=== PATIENT | female | born 1965 | race Hispanic/Latino ===

== ENCOUNTER 2017-08-28 09:51 | Day surgery (SDC) | payer MEDICAID ==
[~2017-08-28] VITALS: Ht 157.5 cm; Wt 77.6 kg
[~2017-08-28 09:51] MED LIST: ATOR40TA69 PO; BUSP10TA3 PO; GABA-531 PO; INSU100V SQ; INSU100V12 SQ; LAMO200T51 PO; LOSA25TA21 PO; METF500T6 PO; METH500T6 PO; MONT10TA24 PO; PANT40TA25 PO; RISP4TAB16 PO; SODIUM CHLORIDE 0.9% 1000ML 1,000 ML IV ONE; TRAZ-185 PO
[2017-08-28 10:12] VITALS: BP 143/76
[2017-08-28] MEDS ORDERED: MIDAZOLAM HCL 1 MG/ML 2ML VIAL ONE (11:07)
[2017-08-28 12:05] VITALS: BP 150/87
== END 2017-08-28 12:20 | disposition home or self-care (01) ==
LOC: DAH 09:51
PROVIDERS: ATTEND Internal Medicine
DX: D12.2 Benign neoplasm of ascending colon (principal); K62.1 Rectal polyp; Z68.31 Body mass index [BMI] 31.0-31.9, adult; I10 Essential (primary) hypertension; E78.00 Pure hypercholesterolemia, unspecified; F41.9 Anxiety disorder, unspecified; F32.9 Major depressive disorder, single episode, unspecified; J45.909 Unspecified asthma, uncomplicated; E11.9 Type 2 diabetes mellitus without complications; R56.9 Unspecified convulsions; Z79.899 Other long term (current) drug therapy; Z79.84 Long term (current) use of oral hypoglycemic drugs; Z79.4 Long term (current) use of insulin; Z90.710 Acquired absence of both cervix and uterus; Z98.890 Other specified postprocedural states; K22.8 Other specified diseases of esophagus; K57.30 Diverticulosis of large intestine without perforation or abscess without bleeding
CPT/HCPCS: 43239; 45380; 45385; 82948 ×2; 88305; 88313; 88342; A4606; J2250; J7030

== ENCOUNTER → 2018-07-10 | Outpatient (CLI) | payer MEDICAID ==
[~2018-07-10] MED LIST changes: -LOSA25TA21 PO; +LOSA25TA41 PO; +METF-444 PO; -METF500T6 PO; -SODIUM CHLORIDE 0.9% 1000ML 1,000 ML IV ONE
== END | disposition home or self-care (01) ==
LOC: RAH 08:36
PROVIDERS: ATTEND Family Medicine
DX: M79.661 Pain in right lower leg (principal); R60.0 Localized edema
CPT/HCPCS: 93971

== ENCOUNTER → 2018-11-19 | Outpatient (CLI) | payer MEDICAID | END | disposition home or self-care (01) | LOC: RAH 10:50 | PROVIDERS: ATTEND Family Medicine | DX: K31.84 Gastroparesis (principal) | CPT/HCPCS: 78264; A9541 ==

== ENCOUNTER → 2020-04-25 | Outpatient (CLI) | payer MEDICAID ==
[~2020-04-25] MED LIST changes: -MONT10TA24 PO; +MONT10TA26 PO; -PANT40TA25 PO; +PANT40TA54 PO; -RISP4TAB16 PO; +RISP4TAB73 PO
== END | disposition home or self-care (01) ==
LOC: RAH 13:26
PROVIDERS: ATTEND Internal Medicine Cardiovascular Disease
DX: I82.402 Acute embolism and thrombosis of unspecified deep veins of left lower extremity (principal); R60.9 Edema, unspecified
CPT/HCPCS: 93970

== ENCOUNTER → 2020-09-27 | Outpatient (CLI) | payer MEDICAID ==
[~2020-09-27] MED LIST changes: +METH-811 PO; -METH500T6 PO; -MONT10TA26 PO; +MONT10TA32 PO
== END | disposition home or self-care (01) ==
LOC: RAH 14:20
PROVIDERS: ATTEND Internal Medicine Cardiovascular Disease
DX: R60.9 Edema, unspecified (principal)
CPT/HCPCS: 93970

== ENCOUNTER → 2020-12-09 | Outpatient (CLI) | payer MEDICAID ==
[~2020-12-09] MED LIST changes: +0.9%NACL 1000ML 0 ML IV ONE; +ASPI-1197 PO; +CHOL5POW MC; +CLOP75TA32 PO; +CYCL5TAB PO; +DIVA-78 PO; +DIVA250T45 PO; +ESCI5TAB16 PO; +FOLI1TAB85 PO; +FURO20TA4 PO; +HYDR-3422 PO; +INSU100I21 SQ; +LURA60TA PO; +METO-408 PO; +MIRT-72 PO
== END | disposition home or self-care (01) ==
LOC: DAH 10:00 → EDSTATUS 12-13 09:45
PROVIDERS: ATTEND Internal Medicine Gastroenterology
DX: R19.7 Diarrhea, unspecified (principal); Z20.822 Contact with and (suspected) exposure to COVID-19
CPT/HCPCS: 87635; C9803; J7030

== ENCOUNTER → 2020-12-27 | Day surgery (SDC) | payer MEDICAID ==
[2020-12-27] VITALS (7 sets, daily range): BP systolic 165–199; BP diastolic 64–96
[~2020-12-27] MED LIST changes: -0.9%NACL 1000ML 0 ML IV ONE; +0.9%NACL 1000ML 1,000 ML IV ONE; +PROPOFOL 10 MG/ML 20ML VIAL IV ONE
== END | disposition home or self-care (01) ==
LOC: ENDO 12-21 16:49 → DAH 08:18 → ENDO 12:50
PROVIDERS: ATTEND Internal Medicine Gastroenterology
DX: K52.9 Noninfective gastroenteritis and colitis, unspecified (principal); Z20.822 Contact with and (suspected) exposure to COVID-19; K21.9 Gastro-esophageal reflux disease without esophagitis; I10 Essential (primary) hypertension; E11.43 Type 2 diabetes mellitus with diabetic autonomic (poly)neuropathy; K31.84 Gastroparesis; F41.9 Anxiety disorder, unspecified; F32.9 Major depressive disorder, single episode, unspecified; J45.909 Unspecified asthma, uncomplicated; E78.00 Pure hypercholesterolemia, unspecified; K76.0 Fatty (change of) liver, not elsewhere classified; I25.10 Atherosclerotic heart disease of native coronary artery without angina pectoris; I25.2 Old myocardial infarction; Z86.010 Personal history of colon polyps; Z90.710 Acquired absence of both cervix and uterus; Z98.890 Other specified postprocedural states; Z98.891 History of uterine scar from previous surgery; Z95.5 Presence of coronary angioplasty implant and graft; Z79.82 Long term (current) use of aspirin; Z79.01 Long term (current) use of anticoagulants; Z79.899 Other long term (current) drug therapy
CPT/HCPCS: 45380; 82948 ×2; A4215; A4221; A4222; A4223; A4606; A4620; A4663; J3490; J7030; J2704

== ENCOUNTER → 2021-01-23 | Outpatient (CLI) | payer MEDICAID ==
[~2021-01-23] MED LIST changes: -0.9%NACL 1000ML 1,000 ML IV ONE; -BUSP10TA3 PO; -GABA-531 PO; -INSU100V SQ; -INSU100V12 SQ; -LAMO200T51 PO; -METF-444 PO; -MONT10TA32 PO; -PANT40TA54 PO; -PROPOFOL 10 MG/ML 20ML VIAL IV ONE; -RISP4TAB73 PO; -TRAZ-185 PO
== END | disposition home or self-care (01) ==
LOC: SHCH 09:54
PROVIDERS: ATTEND Internal Medicine Cardiovascular Disease
DX: I34.0 Nonrheumatic mitral (valve) insufficiency (principal); I21.29 ST elevation (STEMI) myocardial infarction involving other sites; I31.3 Pericardial effusion (noninflammatory); I10 Essential (primary) hypertension; E66.9 Obesity, unspecified; E78.5 Hyperlipidemia, unspecified; E11.9 Type 2 diabetes mellitus without complications
CPT/HCPCS: 93306; 93356

== ENCOUNTER → 2023-05-23 | Outpatient (CLI) | payer MEDICAID ==
[~2023-05-23] MED LIST changes: -INSU100I21 SQ; +INSU100I22 SQ
== END | disposition home or self-care (01) ==
LOC: RAH 11:38
PROVIDERS: ATTEND Family Medicine
DX: R10.12 Left upper quadrant pain (principal); J90 Pleural effusion, not elsewhere classified
CPT/HCPCS: 76700

== ENCOUNTER → 2023-09-04 | Outpatient (CLI) | payer MEDICAID | END | disposition home or self-care (01) | LOC: RAH 13:00 | PROVIDERS: ATTEND Internal Medicine Cardiovascular Disease | DX: I11.9 Hypertensive heart disease without heart failure (principal); I35.8 Other nonrheumatic aortic valve disorders | CPT/HCPCS: 93306 ==

== ENCOUNTER → 2023-09-26 | Outpatient (CLI) | payer MEDICAID ==
[2023-09-26 12:12] LABS: BASOPHILS # (AUTO) 0.06 K/uL (0.00-0.20); BASOPHILS % (AUTO) 0.8 % (0.0-5.0); EOSINOPHILS # (AUTO) 0.58 K/uL (0.00-0.70); EOSINOPHILS % (AUTO) 7.5 % (0.0-8.0); HEMATOCRIT 34.3 % (36-48); IMMATURE GRANULOCYTE ABSOLUTE 0.02 K/uL (0-1); LYMPHOCYTES # (AUTO) 2.7 K/uL (1.0-4.8); LYMPHOCYTES % (AUTO) 35.3 % (21.0-51.0); MEAN CORPUSCULAR HEMOGLOBIN 28.7 pg (27.0-33.0); MEAN CORPUSCULAR HGB CONC 32.7 g/dL (32.0-36.0); MEAN CORPUSCULAR VOLUME 87.9 fL (79-99); MONOCYTES # (AUTO) 0.6 K/uL (0.1-1.0); MONOCYTES % (AUTO) 7.5 % (3.0-13.0); NEUTROPHILS # (AUTO) 3.7 K/uL (1.8-7.7); NEUTROPHILS % (AUTO) 48.6 % (40.0-77.0); PLATELET COUNT (AUTO) 315 K/uL (130-400); RED CELL DISTRIBUTION WIDTH 12.8 % (11.0-15.5); WHITE BLOOD COUNT (AUTO) 7.7 K/uL (4.8-10.8)
[2023-09-26 12:50] LABS: ALBUMIN 2.7 g/dL (3.5-5.0); BILIRUBIN,TOTAL 0.3 mg/dL (0.2-1.0); CREATININE 2.4 mg/dL (0.5-1.0); MAGNESIUM 2.1 mg/dL (1.80-2.40); PHOSPHORUS 4.9 mg/dL (2.5-4.9); POTASSIUM 4.6 mmol/L (3.5-5.1); TOTAL PROTEIN, SERUM 7.3 g/dL (6.0-8.3)
== END | disposition home or self-care (01) ==
LOC: LAB 10:49
PROVIDERS: ATTEND Internal Medicine Cardiovascular Disease
DX: I10 Essential (primary) hypertension (principal); I25.10 Atherosclerotic heart disease of native coronary artery without angina pectoris
CPT/HCPCS: 36415; 80053; 83735; 83880; 84100; 85025